=== PATIENT | female | born 1965 | race Caucasian/White ===

== ENCOUNTER 2017-05-16 10:12 | Emergency (ER) | payer OTHER ==
[2017-05-16 10:25] VITALS: O2SAT 95
--- NOTE | 2017-05-16 10:38 | EDPHY ---
H & P Time Seen by Provider: 05/16/17 10:26 HPI/ROS: CHIEF COMPLAINT: Laceration dorsum left hand HISTORY OF PRESENT ILLNESS: 52-year-old female left hand dominant with up-to- date tetanus sustained accidental laceration of the dorsum of her left hand this morning when she impacted against a metal structure. No foreign body sensation. No paresthesia. No motor deficit PHYSICAL EXAM (Prior to examination, patient consented to physical exam, hands were washed and my usual and customary physical exam procedures followed) 1) GENERAL: Well-developed, well-nourished, alert and oriented. Appears to be in no acute distress. 2) HEAD: Normocephalic 3) HEENT: sclera anicteric 4) LUNGS: Breathing comfortably. 5) SKIN: on the dorsum of the left hand overlying the 3rd metacarpal patient has a 2.5 cm L-shaped flap laceration with viable flap tissue, thick enough to hold suture however thin in some part. 6) MUSCULOSKELETAL: Extensor function is intact with no involvement of the extensors or laceration. 7) NEUROLOGIC: Distal neurologic function is normal. Smoking Status: Never smoked Constitutional: Initial Vital Signs Temperature (C) 36.5 C 05/16/17 10:20 Heart Rate 75 05/16/17 10:20 Respiratory Rate 16 05/16/17 10:20 Blood Pressure 96/65 L 05/16/17 10:20 O2 Sat (%) 95 05/16/17 10:20 O2 Delivery Mode Room Air Allergies/Adverse Reactions: Penicillins Allergy (Verified 05/16/17 10:19) Home Medications: Medication Instructions Recorded Celexa 05/16/17 Hrt Base 05/16/17 MDM/Departure - [facility] Procedures: Procedure: Laceration repair. I explained the indications, risks and benefits for both laceration repair and anesthetic administration. Verbal consent was obtained from the patient . The laceration on the dorsum of the left hand was anesthetized using 0.5% bupivicaine without epinephrine . After anesthetic administered the patient was observed for a period of time and had no apparent adverse effects. The wound was cleaned, prepped, draped in normal sterile fashion and explored to its base. No foreign body seen, no foreign bodies palpated. There were no deep structures involved. No tendon injury was identified. The wound was repaired with 5 simple interrupted 5 O Prolene sutures. The wound repair was simple. The procedure was performed by myself. Patient has been informed that scarring will occur, although efforts have been made to minimize this. ED Course/Re-evaluation: Care of patient under supervision of [secondary] supervising physician Dr Naranjo . - Depart Disposition: Home, Routine, Self-Care Clinical Impression: Laceration of left hand Qualifiers: Encounter type: initial encounter Foreign body presence: without foreign body Qualified Code(s): S61.412A - Laceration without foreign body of left hand, initial encounter Condition: Good Instructions: Care For Your Stitches (ED), Laceration (ED) Additional Instructions: Return to the ER if you develop redness, swelling, discharge, warmth to the wound, red streaks going up your arm , or any other symptoms that concern you. Referrals: Return, to the ER in 10 days for suture removal [Other] - As per Instructions
[2017-05-16 11:07] VITALS: BP 90/73; PULSE 80; RESP 14; TEMP 97.2
== END 2017-05-16 11:07 | disposition home or self-care (01) ==
PROC: 0HQGXZZ Repair Left Hand Skin, External Approach (ICD-10-PCS; principal; 2017-05-16)
DX: S61.412A Laceration without foreign body of left hand, initial encounter (principal); W22.8XXA Striking against or struck by other objects, initial encounter

== ENCOUNTER → 2017-07-30 | Outpatient (CLI) | payer OTHER | LOC: FIMAGING 14:29 | PROVIDERS: ATTEND Family Medicine | DX: Z12.31 Encounter for screening mammogram for malignant neoplasm of breast (principal) ==

== ENCOUNTER → 2018-09-16 | Outpatient (CLI) | payer OTHER | LOC: FIMAGING 13:01 | PROVIDERS: ATTEND Family Medicine | DX: Z12.31 Encounter for screening mammogram for malignant neoplasm of breast (principal) ==